=== PATIENT | female | born 1980 | race Caucasian/White ===

== ENCOUNTER 2022-01-07 15:05 | Inpatient (IN) ==
[2022-01-07] MEDS ORDERED: Isovue-370 500 ML BOTTLE IVP ONE (15:55)
[2022-01-07] MEDS ORDERED: Ibuprofen 600 MG TABLET PO ONE (15:55)
[2022-01-07] MEDS ORDERED: Tdap (Boostrix) Vaccine 0.5 ML SYRINGE IM ONE (15:59)
[2022-01-07 16:12] LABS: Basophils % 0.5 %; Eosinophils # 0.2 K/mcL (0.0-0.6); Eosinophils % 2.7 %; Hematocrit 46.2 % (35.3-44.9); Immature Granulocytes % 0.2 % (0-4); Lymphocytes # 2.6 K/mcL (0.6-4.6); Lymphocytes % 31.3 %; Mean Corpuscular HGB Conc 34.6 g/dL (31.6-35.5); Mean Corpuscular Hemoglobin 31.9 pg (28.0-33.3); Mean Platelet Volume 10.3 fL (9.4-12.4); Monocytes # 0.6 K/mcL (0.0-1.3); Monocytes % 6.6 %; Neutrophils # 4.9 K/mcL (1.6-8.9); Platelet Count 311 K/mcL (140-400); Red Blood Count 5.02 M/mcL (3.82-4.97); Red Cell Distribution Width 11.7 % (11.5-14.5); Segmented Neutrophils % 58.7 %; White Blood Count 8.4 K/mcL (4.3-11.1)
[2022-01-07 16:25] LABS: Acetaminophen < 10 mcg/mL (10-20); BUN/Creatinine Ratio 20 (6-26); Blood Urea Nitrogen 18 mg/dL (6-20); Calcium 9.8 mg/dL (8.6-10.3); Carbon Dioxide 27 mEq/L (23-29); Chloride 108 mEq/L (98-107); Ethanol < 10 mg/dL (Less than 10); Glucose 131 mg/dL (70-105); Osmolality,Calculated 296 (280-300); Potassium 3.6 mEq/L (3.5-5.1); Salicylate < 2.5 mg/dL (15.0-30.0); Sodium 141 mEq/L (136-145); eGFR For African Americans > 60 (> 60); eGFR For Non-African Americans > 60 (> 60)
[2022-01-07 16:27] LABS: Amphetamine Screen,Urine Negative ng/mL (Cutoff=1000); Barbiturate Screen,Urine Negative ng/mL (Cutoff=200); Benzodiazepines Screen,Urine Negative ng/mL (Cutoff=200); Cannabinoid Screen,Urine Negative ng/mL (Cutoff = 50); Cocaine Screen,Urine Negative ng/mL (Cutoff= 300); Opiate Screen,Urine Negative ng/mL (Cutoff=300); Phencyclidine Screen,Urine Negative ng/mL (Cutoff=25)
[2022-01-07] MEDS: Nicotine 21 MG PATCH.TD24 TD SCH (18:01)
[2022-01-07 21:54] LABS: Influenza A PCR Negative (Negative); Influenza B PCR Negative (Negative); Resp. Syncytial Virus PCR Negative (Negative)
[2022-01-07 21:57] LABS: SARS-CoV-2 by PCR (In House) Negative (Negative)
[2022-01-07] MEDS ORDERED: *HR* LORazepam 2 MG/ML VIAL IM PRN (22:14)
[2022-01-07] MEDS ORDERED: traZODone 50 MG TABLET PO PRN (22:14)
[2022-01-07] MEDS ORDERED: *HR* LORazepam 1 MG TABLET PO PRN (22:14)
[2022-01-07] MEDS ORDERED: Haloperidol Lactate 5 MG/ML VIAL IM PRN (22:14)
[2022-01-07] MEDS ORDERED: haloperidoL 5 MG TABLET PO PRN (22:14)
[2022-01-07] MEDS: Acetaminophen 325 MG TABLET PO PRN (23:33)
[2022-01-07] MEDS: hydrOXYzine pamoate 25 MG CAPSULE PO PRN (23:33)
[2022-01-08] MEDS: Nicotine 21 MG PATCH.TD24 TD SCH (10:34)
[2022-01-08] MEDS ORDERED: MOM Conc 10 ML UD.LIQ PO PRN (11:26)
[2022-01-08] MEDS ORDERED: Mag Hydrox/Al Hydrox/Simeth 30 ML UDC PO PRN (11:26)
[2022-01-08] MEDS ORDERED: Loratadine 10 MG TABLET PO PRN (12:10)
[2022-01-08] MEDS ORDERED: Melatonin 3 MG TABLET PO PRN (12:12)
[2022-01-08] MEDS: Acetaminophen 325 MG TABLET PO PRN ×2 (12:30→20:37)
[2022-01-08] MEDS: estradioL 0.5 MG TABLET PO SCH (14:07)
[2022-01-08] MEDS: hydrOXYzine pamoate 25 MG CAPSULE PO PRN (20:37)
[2022-01-08] MEDS ORDERED: rOPINIRole 1 MG TABLET PO SCH (21:00)
[2022-01-09] MEDS: Acetaminophen 325 MG TABLET PO PRN (06:16)
[2022-01-09] MEDS: Nicotine 21 MG PATCH.TD24 TD SCH (09:09)
[2022-01-09] MEDS: estradioL 0.5 MG TABLET PO SCH (09:10)
[2022-01-09 09:13] VITALS: BP 119/86; PULSE 74; TEMP 98.4; O2SAT 100
== END 2022-01-09 13:35 | disposition home or self-care (01) | DRG 751 ==
LOC: EMEROOARM 15:05 → 1ANU 22:22
PROVIDERS: ADMIT Psychiatry & Neurology Psychiatry; ATTEND Psychiatry & Neurology Psychiatry